=== PATIENT | male | born 1950 | race Caucasian/White ===

== ENCOUNTER 2016-05-05 17:23 | Emergency (ER) | payer SELFPAY | END 2016-05-05 20:05 | disposition home or self-care (01) | LOC: ER1 17:23 | DX: S16.1XXA Strain of muscle, fascia and tendon at neck level, initial encounter (principal); R42 Dizziness and giddiness; F41.9 Anxiety disorder, unspecified; Z88.0 Allergy status to penicillin; Z88.8 Allergy status to other drugs, medicaments and biological substances; V43.52XA Car driver injured in collision with other type car in traffic accident, initial encounter; Y93.89 Activity, other specified; Y92.410 Unspecified street and highway as the place of occurrence of the external cause; Z79.899 Other long term (current) drug therapy | CPT/HCPCS: 70450; 71020; 72125; 99284 ==

== ENCOUNTER → 2020-11-28 | Outpatient (CLI) | payer MEDICARE, OTHER | LOC: SLEEP 10:09 | DX: G47.33 Obstructive sleep apnea (adult) (pediatric) (principal) | CPT/HCPCS: 95811 ==

== ENCOUNTER → 2021-04-27 | Outpatient (CLI) | payer OTHER | LOC: CT 09:37 | DX: H90.3 Sensorineural hearing loss, bilateral (principal) | CPT/HCPCS: 36415; 70481; 82565; 84520; Q9967 ==

== ENCOUNTER 2021-07-28 21:24 | Emergency (ER) | payer OTHER ==
[2021-07-28] MEDS ORDERED: HYDROCHLOROTH12.5 MG PO (23:06)
== END 2021-07-28 23:49 | disposition home or self-care (01) ==
LOC: ER1 21:24
DX: I10 Essential (primary) hypertension (principal); E78.5 Hyperlipidemia, unspecified
CPT/HCPCS: 93005; 99283

== ENCOUNTER → 2021-08-31 | Outpatient (CLI) | payer OTHER ==
[~2021-08-31] MED LIST: HYDROCHLOROTH12.5 MG PO
== END ==
LOC: LAB 08:15
DX: B34.9 Viral infection, unspecified (principal); Z20.822 Contact with and (suspected) exposure to COVID-19
CPT/HCPCS: 36415; U0002